=== PATIENT | female | born 1955 | race Caucasian/White ===

== ENCOUNTER 2021-03-23 14:13 | Emergency (ER) | payer SELFPAY ==
[2021-03-23] MEDS ORDERED: Famotidine 20 MG/2 ML SDV IVPUSH PRN (15:13)
[2021-03-23] MEDS ORDERED: methylPREDNISolone Sodium Succinate 125 MG/2 ML SDV IVPUSH PRN (15:13)
[2021-03-23] MEDS ORDERED: diphenhydrAMINE 50 MG/ML SDV IVPUSH PRN (15:13)
[2021-03-23] MEDS ORDERED: EPINEPHrine 1 MG/ML SDV IM PRN (15:13)
[2021-03-23] MEDS ORDERED: Sodium Chloride 0.9% 10 ML Syringe FLUSH SCH (15:15)
--- NOTE | 2021-03-23 15:55 | EDM.PDOC ---
ED HPI GENERAL MEDICAL PROBLEM - General Chief Complaint: Respiratory Problem Stated Complaint: COVID+ Time Seen by Provider: 03/23/21 14:17 Source of Information: Reports: Patient History Limitations: Reports: No Limitations - History of Present Illness INITIAL COMMENTS - FREE TEXT/NARRATIVE: 65-year-old female presents the emergency department with complaints of worsening Covid type symptoms. Patient states she developed what she thought was a sinus infection on March 16, 2021. She states that it progressively developed into fever, chills, cough, shortness of breath, nausea, vomiting, diarrhea and loss of taste and smell. She states she tested positive for Covid on March 19, 2021. She was seen at [facility] today and sent to this hospital to receive Regeneron treatment at the [facility]. However, nurse practitioner at the [facility] called to report that the patient's O2 saturations were 89 to 90% on room air and that systolic blood pressure was only in the 90s and she felt that the patient may need to be seen in the ER. Patient was sent for a CTA as her D-dimer was slightly elevated and then sent to the emergency department. Patient was hemodynamically stable in the emergency department and O2 saturations are 98 to 100% on room air. Patient denies urinary symptoms. She states that the diarrhea has resolved. She states she vomits about once daily of bile colored emesis. She is not currently nauseated. Hematology reveals a WBC of 4.61, hemoglobin 15.5, hematocrit 46.4, platelet count 137 Coagulation shows a D-dimer of 0.55 Chemistry reveals a sodium of 139, potassium 3.7, carbon dioxide 30, anion gap 14.7, BUN 16, creatinine 0.9, glucose 112, total bilirubin 0.7, AST 43, ALT 18, alk phos 64, C-reactive protein 12.[address] of the chest: 1. Findings compatible with diffuse Covid pneumonia. 2. No findings of pulmonary embolism are seen. 3. Large rim calcified gallstone within the gallbladder. Patient states that the Regeneron was discussed with her at the outpatient clinic however I also educated the patient regarding this. I spoke with the patient to provide information about Regeneron treatment for herself. I offered her the patient and caregiver [employer] Regeneron fax sheet to read and review. I stated the drug has been approved by an emergency use authorization process and has not been fully FDA approved or reviewed. The patient meets the EUA requirements. I discussed there are other potential treatment options that are currently not FDA approved to treat COVID-19. Offered opportunity to ask questions and all questions were answered. The patient voiced understanding and agreed to proceed with the treatment for herself. - Related Data Allergies Allergy/AdvReac Type Severity Reaction Status Date / Time Penicillins Allergy Severe Seizure Verified 03/23/21 14:31 Sulfa (Sulfonamide Allergy Severe Cannot Verified 03/23/21 14:31 Antibiotics) Remember Home Meds: Home Meds Ondansetron [Zofran ODT] 4 mg PO Q6H PRN #12 tab.dis 03/23/21 [Rx] Past Medical History - Past Health History Medical/Surgical History: Denies Medical/Surgical History - Infectious Disease History Infectious Disease History: Reports: Novel Coronavirus Social & Family History - Tobacco Use Tobacco Use Status *Q: Never Tobacco User Second Hand Smoke Exposure: No - Recreational Drug Use Recreational Drug Use: No ED ROS GENERAL - Review of Systems Review Of Systems: Comprehensive ROS is negative, except as noted in HPI. ED EXAM, GENERAL - Physical Exam Exam: See Below Exam Limited By: No Limitations General Appearance: Alert, WD/WN, Moderate Distress Ears: Normal External Exam, Hearing Grossly Normal Nose: Normal Inspection Throat/Mouth: Normal Inspection, Normal Lips, Normal Voice, No Airway Compromise Head: Atraumatic Neck: Normal Inspection, Supple Respiratory/Chest: No Respiratory Distress, Normal Breath Sounds, No Accessory Muscle Use, Chest Non-Tender, Crackles (Fine crackles noted to the bilateral bases.) Cardiovascular: Normal Peripheral Pulses, Regular Rate, Rhythm, No Edema, No Murmur Peripheral Pulses: 2+: Radial (L), Radial (R) GI/Abdominal: Normal Bowel Sounds, Soft, Non-Tender, No Distention (Female) Exam: Deferred Rectal (Female) Exam: Deferred Course - Vital Signs Text/Narrative:: As stated above, patient presented with worsening Covid symptoms. Was seen at the Covid clinic and essentially then sent to the emergency department for treatment. At this time patient is a candidate for Regeneron treatment. Did discuss this with her and she is agreeable to receiving this. Last Recorded V/S: Last Vital Signs Temp 97.3 F 03/23/21 14:14 Pulse 94 03/23/21 14:14 Resp 16 03/23/21 14:14 BP 149/66 H 03/23/21 14:14 Pulse Ox 98 03/23/21 14:14 - Orders/Labs/Meds Orders: Active Orders 24 hr Category Date Time Status Vital Signs [RC] Q15M Care 03/23/21 15:13 Active EPINEPHrine [Adrenalin] Med 03/23/21 15:13 Active 0.3 mg IM ONETIME PRN Famotidine [Pepcid] Med 03/23/21 15:13 Active 20 mg IVPUSH ONETIME PRN Sodium Chloride 0.9% [Saline Flush] Med 03/23/21 15:15 Active 30 ml FLUSH ASDIRECTED diphenhydrAMINE [Benadryl] Med 03/23/21 15:13 Active 50 mg IVPUSH ONETIME PRN methylPREDNISolone Sod Succ [Solu-MEDROL] Med 03/23/21 15:13 Active 125 mg IVPUSH ONETIME PRN Medication Orders Diphenhydramine HCl (Diphenhydramine 50 Mg/Ml Sdv) 50 mg IVPUSH ONETIME PRN PRN Reason: hypersensitivity reaction Epinephrine HCl (Epinephrine 1 Mg/Ml Sdv) 0.3 mg IM ONETIME PRN PRN Reason: hypersensitivity reaction Famotidine (Famotidine 20 Mg/2 Ml Sdv) 20 mg IVPUSH ONETIME PRN PRN Reason: hypersensitivity reaction Methylprednisolone Sodium Succinate (Methylprednisolone Sodium Succinate 125 Mg/2 Ml Sdv) 125 mg IVPUSH ONETIME PRN PRN Reason: hypersensitivity reaction Sodium Chloride (Sodium Chloride 0.9% 10 Ml Syringe) 30 ml FLUSH ASDIRECTED [facility] Meds: Medications Generic Name Dose Route Start Last Admin Trade Name Freq PRN Reason Stop Dose Admin Diphenhydramine HCl 50 mg 03/23/21 15:13 Diphenhydramine 50 Mg/Ml Sdv IVPUSH ONETIME PRN hypersensitivity reaction Epinephrine HCl 0.3 mg 03/23/21 15:13 Epinephrine 1 Mg/Ml Sdv IM ONETIME PRN hypersensitivity reaction Famotidine 20 mg 03/23/21 15:13 Famotidine 20 Mg/2 Ml Sdv IVPUSH ONETIME PRN hypersensitivity reaction Methylprednisolone Sodium Succinate 125 mg 03/23/21 15:13 Methylprednisolone Sodium Succinate 125 Mg/2 Ml Sdv IVPUSH ONETIME PRN hypersensitivity reaction Sodium Chloride 30 ml 03/23/21 15:15 Sodium Chloride 0.9% 10 Ml Syringe FLUSH ASDIRECTED VIKTORIYA Discontinued Medications Generic Name Dose Route Start Last Admin Trade Name Nereida PRN Reason Stop Dose Admin CASIRIVIMAB/IMDEVIMAB 10 ml/ 110 mls @ 220 mls/hr 03/23/21 15:13 Sodium Chloride IV 03/23/21 15:42 ONETIME ONE CASIRIVIMAB/IMDEVIMAB 10 ml/ 110 mls @ 220 mls/hr 03/23/21 15:30 03/23/21 15:43 Sodium Chloride IV 03/23/21 15:59 220 mls/hr ONETIME ONE Administration - Re-Assessments/Exams Free Text/Narrative Re-Assessment/Exam: 03/23/21 17:32 Patient did receive that Regeneron treatment and tolerated it well. She has been observed for 1 hour after treatment. She will be discharged to home. We will send a prescription for Zofran ODT to her pharmacy for nausea. Departure - Departure Time of Disposition: 17:32 Disposition: Home, Self-Care 01 Condition: Good Clinical Impression: COVID-19 - Discharge Information Prescriptions: Ondansetron [Zofran ODT] 4 mg PO Q6H PRN #12 tab.dis PRN Reason: Nausea/Vomiting Referrals: PCP,None [Primary Care Provider] - Forms: ED Department Discharge Additional Instructions: You were seen in the emergency department with worsening Covid symptoms. You did receive Regeneron treatment and likely will feel better in the next couple of days. I have sent a prescription to the [place] for a medication called Zofran. This medication is for the prevention of nausea and vomiting. You may take 1 tab every 6 hours as needed for nausea and vomiting. Please allow the tablet to dissolve under your tongue and then wait approximately 30 minutes to eat or drink. Go home and rest and drink plenty of fluids. Take Tylenol or ibuprofen as needed for discomfort. Follow- up with your primary care provider as needed. Sepsis Event Note (ED) - Evaluation Sepsis Screening Result: No Definite Risk - Focused Exam Vital Signs: Vital Signs Temp Pulse Resp BP Pulse Ox 03/23/21 14:14 97.3 F 94 16 149/66 H 98 - My Orders Last 24 Hours: My Active Orders 03/23/21 15:13 Vital Signs [RC] Q15M EPINEPHrine [Adrenalin] 0.3 mg IM ONETIME PRN Famotidine [Pepcid] 20 mg IVPUSH ONETIME PRN diphenhydrAMINE [Benadryl] 50 mg IVPUSH ONETIME PRN methylPREDNISolone Sod Succ [Solu-MEDROL] 125 mg IVPUSH ONETIME PRN 03/23/21 15:15 Sodium Chloride 0.9% [Saline Flush] 30 ml FLUSH ASDIRECTED - Assessment/Plan Last 24 Hours: My Active Orders 03/23/21 15:13 Vital Signs [RC] Q15M EPINEPHrine [Adrenalin] 0.3 mg IM ONETIME PRN Famotidine [Pepcid] 20 mg IVPUSH ONETIME PRN diphenhydrAMINE [Benadryl] 50 mg IVPUSH ONETIME PRN methylPREDNISolone Sod Succ [Solu-MEDROL] 125 mg IVPUSH ONETIME PRN 03/23/21 15:15 Sodium Chloride 0.9% [Saline Flush] 30 ml FLUSH ASDIRECTED
== END 2021-03-23 17:45 | disposition home or self-care (01) ==
LOC: JD.ED 14:13
DX: U07.1 COVID-19 (principal); Z88.0 Allergy status to penicillin; Z88.2 Allergy status to sulfonamides; Z86.16 Personal history of COVID-19
CPT/HCPCS: 99284; M0243; Q0243